=== PATIENT | male | born 1990 ===

== ENCOUNTER 2018-08-01 19:05 | Emergency (ER) | payer SELFPAY ==
[2018-08-01 19:31] VITALS: O2SAT 98
--- NOTE | 2018-08-01 20:19 | C.PDOC ---
History Of Present Illness 27-year-old male presents to the ED for evaluation of headache which began 3 days ago. He describes symptoms as pressure-like and generalized. Patient also reports a tightness to his chest which has been recurring for the past two years. Patient has been evaluated in other hospitals and undergone X-ray imaging , bloodwork and EKG which were all normal. Patient has been told his symptoms are likely caused by anxiety. He reports not being able to sleep well due to this, and suspects his headache may be related to lack of sleep. Patient denies fever, chills, neck pain, nausea, vomiting. He does have some nasal congestion. Time Seen by Provider: 08/01/18 20:03 Chief Complaint (Nursing): Headache History Per: Patient History/Exam Limitations: no limitations Onset/Duration Of Symptoms: Days (3) Current Symptoms Are (Timing): Still Present Additional History Per: Patient Past Medical History Reviewed: Historical Data, Nursing Documentation, Vital Signs Vital Signs: Last Vital Signs Temp 100.8 F H 08/01/18 21:18 Pulse 108 H 08/01/18 21:18 Resp 18 08/01/18 21:18 BP 141/70 08/01/18 21:18 Pulse Ox 98 08/01/18 21:19 - Medical History PMH: No Chronic Diseases Surgical History: No Surg Hx Family History: States: Unknown Family Hx - Social History Hx Alcohol Use: Yes Hx Substance Use: No - Immunization History Hx Tetanus Toxoid Vaccination: No Hx Influenza Vaccination: No Hx Pneumococcal Vaccination: No Review Of Systems Constitutional: Negative for: Fever, Chills, Malaise Eyes: Negative for: Vision Change, Redness ENT: Positive for: Nose Congestion. Negative for: Ear Pain, Throat Pain Cardiovascular: Positive for: Chest Pain (2 years). Negative for: Palpitations Respiratory: Negative for: Shortness of Breath, Wheezing Gastrointestinal: Negative for: Nausea, Vomiting, Abdominal Pain, Diarrhea Skin: Negative for: Rash Neurological: Positive for: Headache. Negative for: Weakness, Numbness, Dizziness Physical Exam - Physical Exam Appears: Well, Non-toxic, No Acute Distress Skin: Normal Color, Warm, Dry Head: Atraumatic, Normacephalic, No Tenderness, No Swelling, No Abrasion, No Laceration Eye(s): bilateral: Normal Inspection, PERRL, EOMI Ear(s): Bilateral: Normal Nose: No Discharge Oral Mucosa: Moist Throat: Normal, No Erythema, No Exudate Neck: Supple Chest: Symmetrical, No Deformity, No Tenderness Cardiovascular: Rhythm Regular, No Murmur Respiratory: Normal Breath Sounds, No Rales, No Rhonchi, No Wheezing Extremity: Bilateral: Atraumatic, Normal Color And Temperature, Normal ROM, Other (normal strength symmetric) Pulses: Left Radial: Normal Neurological/Psych: Oriented x3, Normal Speech, No Cerebellar Signs, Normal Motor, Normal Sensation Gait: Steady ED Course And Treatment ECG: Interpreted By Me, Viewed By Me ECG Rhythm: Sinus Rhythm ECG Interpretation: No Acute Changes Rate From EC O2 Sat by Pulse Oximetry: 98 (on RA) Pulse Ox Interpretation: Normal Medical Decision Making Medical Decision Making: Patient with 2 year history of intermittent chest pain, likely anxiety. Patient has headache likely from not sleeping. On repeat exam, patient is resting comfortably, tolerating po, no longer has headache, no neurologic deficit, no photophobia, no rash, no nuchal rigidity. Patient was instructed to follow up with the clinic in 1-2 days or return to ER if symptoms not improving. Rx was given. Disposition Counseled Patient/Family Regarding: Diagnosis, Need For Followup, Rx Given - Disposition Referrals: [facility] [Outside] Disposition: HOME/ ROUTINE Disposition Time: 20:37 Condition: STABLE Additional Instructions: Vaya a marie mdico o la clnica en 2-5 cunningham sin falta, para mas evaluacin. [employer] los medicamentos selene indicado. Volver a la mark de emergencia en cualquier momento si los sntomas persisten o empeoran. Prescriptions: DiphenhydrAMINE [Benadryl] 25 mg PO HS #30 cap Ibuprofen [Motrin] 600 mg PO Q8 #30 tab Instructions: Headache, Adult, Anxiety, Adult (DC) Print Language: SWEDISH - POA Present On Arrival: None - Clinical Impression Clinical Impression: Headache, Anxiety - PA / [employer] / Resident Statement MD/DO has reviewed & agrees with the documentation as recorded. - Scribe Statement The provider has reviewed the documentation as recorded by the Scribe (Shalonda Avila) All medical record entries made by the Scribe were at my direction and personally dictated by me. I have reviewed the chart and agree that the record accurately reflects my personal performance of the history, physical exam, medical decision making, and the department course for this patient. I have also personally directed, reviewed, and agree with the discharge instructions and disposition.
[2018-08-01 21:19] VITALS: BP 141/70; PULSE 108; RESP 18; TEMP 100.8
== END 2018-08-01 21:18 | disposition home or self-care (01) ==
LOC: C.ER 19:05
DX: R51 Headache (principal); F41.9 Anxiety disorder, unspecified